=== PATIENT | female | born 1965 | race Caucasian/White ===

== ENCOUNTER 2018-09-16 08:42 | Outpatient (REF) | payer BC, SELFPAY ==
[2018-09-16 12:44] LABS: TSH 4.15 uIU/mL (0.358-3.74)
== END 2018-09-16 09:02 ==
LOC: NCHCN 08:42
PROVIDERS: PCP Nurse Practitioner; Visit Provider Nurse Practitioner
DX: E03.9 Hypothyroidism, unspecified (principal)
CPT/HCPCS: 84443

== ENCOUNTER 2019-03-03 06:59 | Outpatient (CLI) | payer BC, SELFPAY ==
[2019-03-03 08:34] LABS: Cholesterol 191 mg/dL (50-200); Triglyceride 123 mg/dL (30-150)
[2019-03-03 08:43] LABS: ALT 52 U/L (12-78); AST 24 U/L (15-37); Albumin 3.8 g/dL (3.4-5.0); Alkaline Phosphatase 125 U/L (46-116); Bilirubin, Direct 0.13 mg/dL (0.00-0.20); Bilirubin, Total 0.5 mg/dL (0.2-1.0); Glucose 111 mg/dL (70-100); Total Protein 7.6 g/dL (6.4-8.2)
[2019-03-03 08:57] LABS: Vitamin D 25 Total 42.9 ng/ml (30-100)
[2019-03-03 09:50] LABS: Hemoglobin A1C 6.4 % (4.5-6.2)
== END 2019-03-03 07:19 ==
PROVIDERS: PCP Nurse Practitioner; Visit Provider Nurse Practitioner
DX: F32.9 Major depressive disorder, single episode, unspecified (principal); Z79.899 Other long term (current) drug therapy
CPT/HCPCS: 36415; 80076; 82306; 82947; 82465; 83036; 84478

== ENCOUNTER 2019-07-21 00:43 | Outpatient (CLI) | payer BC, SELFPAY ==
--- NOTE | 2019-07-21 11:20 | DI.MAMMO_ITS ---
SYMPTOM/DIAGNOSIS: SCREENING, Z12.39 BILATERAL SCREENING MAMMOGRAM: Mammograms were interpreted according to the usual protocol including computer analysis with CAD system, tomosynthesis and C view imaging. Comparison is made with exams from 2010 through 2017 The breasts are composed of heterogeneously dense fibroglandular tissue, breast density category C. No suspicious masses or suspicious microcalcifications are seen. There has been no significant change. IMPRESSION: Category 1, negative mammogram. Yearly screening mammography is recommended. Breast density category C. SA ASSESSMENT OF FINDINGS: Negative. Category 1. Patient will receive a letter notifying them of these results. Bi-RADS category C. The breasts are heterogeneously dense, which may obscure small masses.
== END 2019-07-21 01:03 ==
PROVIDERS: PCP Nurse Practitioner; Visit Provider Nurse Practitioner
DX: Z12.31 Encounter for screening mammogram for malignant neoplasm of breast (principal)
CPT/HCPCS: 77063; 77067

== ENCOUNTER 2019-08-10 08:47 | Outpatient (REF) | payer BC, SELFPAY | END 2019-08-10 09:07 | LOC: NCHCN 08:47 | PROVIDERS: PCP Nurse Practitioner; Visit Provider Nurse Practitioner | DX: E03.9 Hypothyroidism, unspecified (principal) | CPT/HCPCS: 84443 ==

== ENCOUNTER 2020-10-17 14:00 | Outpatient (REF) | payer BC, SELFPAY ==
[2020-10-17 20:28] LABS: HCT 46.8 % (36.0-46.0); HGB 14.9 g/dL (11.2-15.7); MCH 29.2 pg (27.0-33.0); MCHC 31.8 % (32.0-36.0); MCV 91.6 fL (80-95); MPV 10.4 fL (8.0-11.0); Platelet Count 245 10^3/uL (130-400); RBC 5.11 10^6/uL (3.93-5.22); RDW 13.2 % (11.7-14.6); RDW-SD 44.7 fL; WBC 10.23 10^3/uL (4.4-10.8)
[2020-10-17 20:49] LABS: ALT 68 U/L (14-59); AST 37 U/L (15-37); Alkaline Phosphatase 125 U/L (46-116); Anion Gap 8.5 mmol/L (3-11); BUN 15 mg/dL (7-18); Bilirubin, Total 0.3 mg/dL (0.2-1.0); CO2 27.5 mmol/L (21.0-32.0); CREATININE 1.03 mg/dL (0.55-1.02); Calcium 9.9 mg/dL (8.5-10.1); Chloride 104 mmol/L (98-107); Estimated GFR 55.23 (mL/min/1.73m2); Glucose 128 mg/dL (74-106); Sodium 140 mmol/L (136-145); TSH (W/Ref FT4) 1.46 uIU/mL (0.36-3.74)
[2020-10-17 20:58] LABS: Hemoglobin A1C 6.3 % (<5.7)
== END 2020-10-17 14:20 ==
LOC: NCHCN 14:00
PROVIDERS: PCP Nurse Practitioner; Visit Provider Nurse Practitioner
DX: E03.9 Hypothyroidism, unspecified (principal); R73.03 Prediabetes; L60.9 Nail disorder, unspecified
CPT/HCPCS: 80053; 85027; 83036; 84443

== ENCOUNTER 2021-02-17 21:32 | Outpatient (REF) | payer BC, SELFPAY | END 2021-02-17 21:33 | disposition home or self-care (01) | LOC: NCHCN 21:32 | PROVIDERS: PCP Nurse Practitioner; Visit Provider Nurse Practitioner Family | DX: N39.0 Urinary tract infection, site not specified (principal) | CPT/HCPCS: 87077; 87086; 87186 ==

== ENCOUNTER 2021-05-03 12:40 | Outpatient (REF) | payer BC, SELFPAY ==
[2021-05-03 14:35] LABS: Hemoglobin A1C 6.6 % (<5.7)
[2021-05-03 14:41] LABS: TSH (W/Ref FT4) 0.97 uIU/mL (0.36-3.74)
== END 2021-05-03 12:41 | disposition home or self-care (01) ==
LOC: NCHCN 12:40
PROVIDERS: PCP Nurse Practitioner; Visit Provider Nurse Practitioner
DX: R73.03 Prediabetes (principal); E03.9 Hypothyroidism, unspecified
CPT/HCPCS: 83036; 84443

== ENCOUNTER 2021-05-09 16:56 | Outpatient (CLI) | payer BC, OTHER, SELFPAY ==
--- NOTE | 2021-05-09 12:00 | DI.RAD_ITS ---
Exam(s) XR KNEE LT 3V AP,LAT,RAHUL EXAM: XR KNEE LT 3V AP,LAT,RAHUL CLINICAL HISTORY: ACUTE LT KNEE PAIN M25.562. TECHNIQUE: 2D digital imaging was performed. COMPARISON: No exams were available for comparison FINDINGS: BONES: No acute fracture is present. No bony destructive lesion is seen. JOINTS: The knee is normally aligned. There is a tiny joint effusion. There is mild spurring of the medial femoral tibial joint in the posterior patella. SOFT TISSUE: Normal. IMPRESSION: Minimal degenerative changes of the left knee and tiny joint effusion. DATA REPOSITORY: RADIATION DOSE DELIVERED:
== END 2021-05-09 17:16 ==
PROVIDERS: PCP Nurse Practitioner; Visit Provider Nurse Practitioner Family
DX: M25.462 Effusion, left knee (principal)
CPT/HCPCS: 73562

== ENCOUNTER 2021-07-20 02:11 | Outpatient (CLI) | payer BC, OTHER, SELFPAY ==
--- NOTE | 2021-07-20 | DI.MRI_ITS ---
Exam(s) MR LOWER JOINT LT WO EXAM: MR LOWER JOINT LT WO CLINICAL HISTORY: LT KNEE PAIN, M25.562, ONGOING PAIN, XRAY DJD, EFFUSION, SEVERE PAIN WITH TECHNIQUE: Multiplanar multisequence MRI of the knee was performed. COMPARISON: X-rays 05/09/2021 reviewed FINDINGS: EFFUSION: There is a large joint effusion. There is no Horvath cyst in the popliteal fossa. MARROW:There is prominent bone contusion signal in the medial tibial plateau and mild intraosseous si gnal in the overlying subarticular medial femoral condyle. There is a degenerative subarticular cyst measuring 6 x 4 millimeters in the mid tibial plateau sub spinous region. PATELLOFEMORAL COMPARTMENT: The quadriceps tendon is intact. The patellar ligament is intact. There is no significant thinning of the retropatellar cartilage. No evidence of fissure nor signific ant chondral defect. No osteochondral defect at this level.There is no intraosseous signal to sugges t recent patellar dislocation. Outward bowing of the medial patellar retinaculum related to large maynor int effusion. CRUCIATE LIGAMENTS: Mild increased signal but no high-grade tear.The posterior cruciate ligament is i ntact. MEDIAL COMPARTMENT/MEDIAL MENISCUS: There is complex tearing of the posterior horn of the medial meni scus. There is a tear is 7 millimeters from the root with mild separation of fragments. There is al so 2-3 millimeters outward extrusion of the posterior horn although this is not descended into the gu tter. Mild meniscocapsular separation. No obvious tear of the anterior horn.. There is significant thinning of the Hyaline cartilage over the medial femoral condyle. No osteochon dral defects seen. Small marginal osteophyte off the inner aspect of the condyle. MEDIAL COLLATERAL LIGAMENT: Sprain signal. No full-thickness tear. POSTEROMEDIAL CORNER: Mild increased signal noted in the semimembranosus tendon but no high-grade tea r. LATERAL COMPARTMENT/LATERAL MENISCUS: There is no evidence of lateral meniscal tear.There are no axel dral defects, osteochondral defects, subarticular marrow edema, nor osteophytes evident. ILIOTIBIAL BAND: Intact LATERAL COLLATERAL LIGAMENT COMPLEX: The fibular collateral ligament is intact. The biceps femoris t endon is intact.Popliteus muscle and tendon are intact. IMPRESSION: 1. The main finding here is a complex tear of the posterior horn of the medial meniscus with some out henson extrusion but no descent into the para tibial gutter. Mild meniscocapsular separation. Medial collateral ligament sprain signal but no high-grade MCL tear. There is significant bone contusion in the medial tibial plateau subjacent to the torn meniscus. Mild subarticular bone edema evident in t he overlying medial femoral condyle. Also mild-moderate cartilage loss over the medial femoral condy le but no osteochondral defect. 2. Increased signal in the anterior cruciate ligament but no full-thickness tear. PCL is intact. Il iotibial band is intact. All components of the lateral collateral ligament complex are intact. 3. Mild increased signal in the semimembranosus tendon behind the medial femoral condyle but no high- grade tear. 4. Large joint effusion. There is no Horvath cyst in the popliteal fossa. DATA REPOSITORY:
== END 2021-07-20 02:31 ==
PROVIDERS: PCP Nurse Practitioner; Visit Provider Nurse Practitioner
DX: M25.562 Pain in left knee (principal); M25.462 Effusion, left knee; M17.12 Unilateral primary osteoarthritis, left knee; S83.232A Complex tear of medial meniscus, current injury, left knee, initial encounter; S83.412A Sprain of medial collateral ligament of left knee, initial encounter; S80.02XA Contusion of left knee, initial encounter; X58.XXXA Exposure to other specified factors, initial encounter
CPT/HCPCS: 73721

== ENCOUNTER 2021-10-16 09:11 | Outpatient (CLI) | payer BC, OTHER, SELFPAY ==
[2021-10-16 10:52] LABS: Source Nasal/Nares
[2021-10-16 14:32] LABS: COVID-19 PCR Negative (Negative)
== END 2021-10-16 09:12 | disposition home or self-care (01) ==
LOC: LBO 09:12
PROVIDERS: PCP Nurse Practitioner; Visit Provider Student in an Organized Health Care Education/Training Program
DX: Z20.822 Contact with and (suspected) exposure to COVID-19 (principal)
CPT/HCPCS: 87635

== ENCOUNTER 2021-10-17 10:47 | Day surgery (SDC) | payer BC, OTHER, SELFPAY ==
[2021-10-17] VITALS (9 sets, daily range): BP systolic 97–147; BP diastolic 61–93; PULSE 68–85; RESP 11–18; TEMP 36.1–36.8; O2SAT 94–97; BMI 38.0
--- NOTE | 2021-10-17 10:19 | W.ANESPRE ---
General Info Date of Service Date Performed: 10/17/21 Height: 5 ft 5 in Weight: 103.769 kg Body Mass Index (BMI): 38.0 Surgical Procedure: Operation Date: 10/17/21 14:10 Proposed Procedures Side Surgeon p Knee Arthroscopy WITH MEDIAL MENISECTOMY Left Jarrod Ware MD Meds Allergies and Home Medications Allergies Allergy/AdvReac Type Severity Reaction Status Date / Time No Known Allergies Allergy Unverified 10/17/21 10:55 Home Medication Medication Instructions Recorded Centrum Silver 1 tab PO DAILY 11/16/13 aripiprazole [Abilify] 10 mg PO DAILY 11/16/13 calcium carb and citrate-vitD3 1 tab PO DAILY 11/16/13 duloxetine [Cymbalta] 60 mg PO DAILY 11/16/13 levothyroxine 100 mcg PO DAILY 11/16/13 propranolol 80 mg PO DAILY PRN 11/16/13 ondansetron 4 mg PO Q6H PRN #10 01/18/18 metformin 500 mg tablet 500 mg PO DAILY 08/14/21 Current Visit Medications: Current Medications Generic Name Dose Route Start Last Admin Trade Name Freq PRN Reason Stop Dose Admin Acetaminophen 1,000 mg 10/17/21 06:00 Acetaminophen 500 Mg Tab PO PREOP RAY Celecoxib 400 mg 10/17/21 06:00 Celecoxib 200 Mg Cap PO PREOP RAY Ringer's Solution 1,000 mls @ 80 mls/hr 10/17/21 06:00 IV 11/16/21 23:59 INFUSION RAY Cefazolin Sodium/Dextrose 2 gm in 50 mls @ 100 mls/hr 10/17/21 06:00 Ancef Duplex IVPB 11/16/21 23:59 PREOP RAY IV Miscellaneous Supplies 1 each 10/17/21 06:00 Iv Access IV 11/16/21 23:59 DIRECTED RAY Sodium Chloride 0 ml 10/17/21 06:00 Normal Saline Flush 10 Ml Syr IV 11/16/21 23:59 PRN PRN Sodium Chloride 0 ml 10/17/21 06:00 Normal Saline 10 Ml Vial IJ 11/16/21 23:59 DIRECTED PRN Sterile Water 0 ml 10/17/21 06:00 Water,Injection,Sterile 10 Ml Vial IJ 11/16/21 23:59 DIRECTED PRN PFSH Active Problems Active Problems: Problem Status Onset Code Chondromalacia, left knee M94.262 Complex tear of medial meniscus of left knee S83.232A Medical History Active Problem List Chondromalacia, left knee (Acute) Complex tear of medial meniscus of left knee (Acute) Medical History Chronic mycotic otitis externa Female infertility Headache Hypothyroid MDD (major depressive disorder) Non-organic sleep disorder Obesity On paleo diet and has lost 2 dress sizes Periodontitis Vitamin D deficiency Tobacco Smoking/Tobacco Use Status: Never Alcohol Alcohol Intake: current Alcohol intake frequency: 0-2 drinks per day Substance Use Substance use: Never Substance use type: does not use Vital Signs and Lab Results Lab Results Blood Type / Crossmatch: No Data to Display Complete Blood Count: No Data to Display Complete Metabolic Panel: No Data to Display Liver Function Panel: No Data to Display Coagulation Panel: No Data to Display Cardiac Panel: No Data to Display Arterial Blood Gas: No Data to Display Venous Blood Gas: No Data to Display Pancreas Panel: No Data to Display Thyroid Panel: No Data to Display Infectious Disease: Coronavirus (COVID-19)(PCR) Negative (Negative) 10/16/21 09:03 10/16/21 Coronavirus 2019 Source Nasal/Nares 10/16/21 09:03 10/16/21 Blood Cultures: No Data to Display Toxicology Panel: No Data to Display Anesthesia Assessment and Plan Anesthesia History Personal History: No History of Anesthesia Complications Family History: No Family History of Anesthesia Complications Exercise Tolerance Exercise Tolerance: Metabolic Equivalents>4 Pertinent Negatives Pertinent Negatives: No Symptoms of GERD, No Major Cardiovascular Symptoms or Complaints, No Major Pulmonary Symptoms or Complaints and No History of CVA/TIA Cardiac & Pulmonary Exam Cardiac Exam: Normal S1/S2 Heart Sounds Pulmonary Exam: Clear Bilateral Breath Sounds Implantable Cardiac Device Does patient have a Pacemaker or an ICD?: No Airway Exam Known Difficult Airway: No Mallampati Class: 3 Mouth Opening: Normal (> 3cm) Thyromental Distance: Greater than 3 cm Neck Range of Motion: Full ROM Neck Circumference: Normal Teeth Condition: Normal Dentition ASA Classification ASA Score: ASA 2 Emergency Case?: No NPO Status NPO Status: NPO Clears >2 hours, Solids >8 hours Anesthesia Plan Resuscitation Status: Full Code Anesthesia Technique: General Anesthesia Airway Planned: LMA Monitors Used: Standard Monitors
[2021-10-17] MEDS: Celecoxib 200 MG CAP 400 MG PO (11:25)
[2021-10-17] MEDS: Acetaminophen 500 MG TAB 1000 MG PO (11:25)
[2021-10-17] MEDS: Lactated Ringers 1,000 ML 80 ML IV (11:59)
[2021-10-17] MEDS: ceFAZolin 2 GM/50 ML BAG IVPB (12:14)
[2021-10-17] MEDS: Bupivacaine 0.5% Pres-Free 30 ML VIAL (12:49)
--- NOTE | 2021-10-17 12:59 | W.PM.DSUDISC ---
Discharge Plan Disposition Patient Disposition: HOME Condition: Good Discharge Details Reason For Visit: L knee arthroscopy Attending Provider: Jarrod Ware Primary Care Provider: Estefania Caballero Home Meds and New Rx's Prescriptions: New hydrocodone-acetaminophen 5-325 mg tablet 1 tab PO Q6H PRN (Reason: pain) Qty: 6 RF: 0 acetaminophen 500 mg tablet 1,000 mg PO TID Qty: 90 RF: 0 ibuprofen 600 mg tablet 600 mg PO TID PRN (Reason: pain) Qty: 90 RF: 0 Continued metformin 500 mg tablet 500 mg PO DAILY RF: 0 propranolol 80 MG tablet 80 mg PO DAILY PRNRF: 0 levothyroxine 100 MCG tablet 100 mcg PO DAILY RF: 0 aripiprazole [Abilify] 10 MG tablet 10 mg PO DAILY RF: 0 duloxetine [Cymbalta] 60 MG capsule,delayed release(DR/EC) 60 mg PO DAILY RF: 0 Centrum Silver 1 EACH tablet 1 tab PO DAILY RF: 0 calcium carb and citrate-vitD3 1 EACH tablet extended release 1 tab PO DAILY RF: 0 ondansetron 4 MG tablet,disintegrating 4 mg PO Q6H PRN (Reason: Vomiting) Qty: 10 RF: 0 Discharge Instructions Stand Alone Forms: [facility] Knee Arthroscopy Referrals: Jarrod Ware MD [ [facility] STAFF PHYSICIAN] - Equipment/Supplies: Partial Weight Bearing Crutches Activity:: Activity as Tolerated Remove Dressings/Wound Care:: 72 hours Shower/Bathe:: 72 hours Diet:: As Tolerated Discharge Orders Discharge Orders: Discharge Order (Routine); Ordered 10/17/21 Ordered By: Yuri Barnett DS: Diagnosis Discharge Diagnosis (1) Complex tear of medial meniscus of left knee: Status: Acute
[2021-10-17] MEDS: fentaNYL 100 MCG/2 ML VIAL IVP (13:43)
[2021-10-17] MEDS: Ketorolac 15 MG/ML VIAL IVP (13:55)
--- NOTE | 2021-10-17 15:26 | ANES.POST_ITS ---
Postoperative Evaluation Date, Time and Location Date Performed: 10/17/21 Time Performed: 15:26 Patient Location: PACU Vital Signs Most Recent Imported Vital Signs: Most Recent Vital Signs Temp Pulse Resp BP Pulse Ox 36.2 C L 81 16 134/79 95 10/17/21 14:15 10/17/21 14:15 10/17/21 14:15 10/17/21 14:15 10/17/21 14:15 Pain Score Most Recent Pain Score: Most Recent Pain Score Pain Level 0 10/17/21 14:15 Assessment Mental Status: Awake (Alert & Oriented to Patient Baseline) Airway and Respiratory Function: Patent airway with normal (patient baseline) respiratory exam Cardiovascular Function: Hemodynamically Stable Hydration Status: Adequately Hydrated Nausea & Vomiting: No Nausea or Vomiting Pain: Pain is tolerable per patient Peripheral Nerve Block: Patient did not receive a nerve block Postoperative Comments:: Seen earlier in PACU patient was having discomfort, however, was being treated by [employer].
--- NOTE | 2021-10-17 21:46 | W.PM.OP ---
Date of service: 10/17/21 Time of Service: 13:46 Operative Note Operative Note DATE OF PROCEDURE: 10/17/21 PRE-OP DIAGNOSIS: Left Medial Meniscus Tear POST-OP DIAGNOSIS: same Left Knee Medial Chondromalacia and Left Lateral Meniscus Tear PROCEDURE: Left Knee Arthroscopic Partial Lateral and Medial Menisectomies, Medial Femoral Chondroplasty SURGEON: Jarrod Ware ANESTHESIA TYPE: General LMA/ETT Refer to Anesthesia Record ESTIMATED BLOOD LOSS: 0 PATHOLOGY: none sent TOURNIQUET TIME: 0 COMPLICATIONS: None Patient was transported to: PACU Patient's condition: stable Indications: I have seen Estefania in clinic for symptoms of a meniscus tear. This was confirmed based on MRI and exam findings. Nonoperative measures were exhausted but disability and pain persisted. I discussed knee arthroscopy with meniscal intervention with the patient. I reviewed the risks of the procedure to include, but not limited to, bleeding, infection, pain, stiffness, damage to nerves or vessels, recurrence, blood clot. Despite these risks, the patient elected to proceed. Findings: A diagnostic arthroscopy was performed with the following findings: Suprapatellar Pouch: Moderate inflammatory changes, No loose bodies Medial Compartment: Complex medial meniscal tear within the body and the horn, Intact meniscal root but with notable inflammatory changes and questionable previosu injury, Grade III chondromalacia of the femur with a chondral flap, very focal Grade III chondromalacia of the central tibia, No loose bodies Notch: ACL and PCL were intact Lateral Compartment: Complex tearing at the meniscal root, Intact meniscal root peripherally, No significant chondromalacia or signs of arthritis, No loose bodies Patellofemoral Compartment: Grade I chondromalacia, No apparent patellar maltracking Procedure Description: Estefania was greeted in the preoperative holding area where the correct side was identified and marked. The consent was reviewed with the patient and signed. The history and physical was updated. All questions were answered. She was taken back to the operating room. The patient was placed into the supine position on the operating room table. All bony prominences were well padded. Prophylactic antibiotics in the form of Cefazolin were administered. The left leg was then prepped with Chloraprep and draped in a standard fashion with stockinette and extremity drape. A timeout to confirm correct identity, side and site, procedure, allergies, anesthesia, and medical concerns was performed. The leg was placed into a pneumatic leg goel, [id number]. A standard lateral portal was made at the lateral border of the patella tendon in line with the inferior pole of the patella, soft spot. The skin and deep tissue was incised sharply and the blunt trochar was inserted atraumatically. A diagnostic arthroscopy was performed and the findings are listed above. The suprapatellar pouch had moderate inflammatory changes. The patellofemoral articulation showed mild chondromalacia as well as good tracking. The lateral gutter had no loose bodies and the medial gutter had no loose bodies. The knee was brought into some valgus stress in extension to open the medial compartment. A medial portal was made, localized by a spinal needle. The portal was created with an #11 blade through skin and capsule under direct visualization avoiding any meniscal injury. A probe was then inserted into the medial compartment. The medial compartment was fully inspected. The chondral surface of the tibia showed a small focal area of Grade III chondromalacia in the central tibia and the surface of the femur showed diffuse Grade II/III chondromalacia with a loose chondral flap. No exposed bone. The medial meniscus had a complex tear with signficant fraying within the body of the medial menicus. There was also a vertical type tear within the posterior horn. Furthermore, the meniscus had significant inflammatory change around it. In inspecting the root, it appeared like it had been previously torn or coud be torn just medial to the root. However, I ws unable to expose a tear but there was significant inflammation in this area and friability to the meniscus. After evaluation, the meniscus was debrided down to a stable base using a series of biters and arthroscopic kacie. It was probed afterwards to confirm that the tear had been removed and the meniscus was stable. Cartilage surfaces were debrided of any flaps, leaving any intact fibers. The notch was then inspected which showed an intact ACL and an intact PCL. The leg was then brought into a figure of 4 position. The lateral compartment was fully inspected with the arthroscope and a probe. The chondral surface of the lateral femur showed no significant chondromalacia. The chondral surface of the lateral tibia showed no significant chondromalacia. The lateral meniscus had a complex tear at the level of the root but the root ws peripherally stable. After evaluation, the meniscus was debrided down to a stable base using a series of biters and arthroscopic kacie. It was probed afterwards to confirm that the tear had been removed and the meniscus was stable. The arthroscope was brought back into the suprapatellar pouch and the leg was in full extension. The knee was thoroughly irrigated with the arthroscopic fluid on high flow and pressure. Inflow was stopped and excess fluid was removed. The wounds were closed with 4-0 Nylon. They were dressed with Xeroform, 4x4 gauze, ABD pad, Kerlix and an BOBBI wrap. A cryo-cuff was applied. The patient tolerated the procedure well and was returned to the Same Day Surgery area in a stable condition suffering no known complication.
== END 2021-10-17 15:39 | disposition home or self-care (01) ==
PROVIDERS: PCP Nurse Practitioner; Visit Provider Student in an Organized Health Care Education/Training Program
PROC: (CPT 29870; principal; 2021-10-17 14:00)
DX: S83.232A Complex tear of medial meniscus, current injury, left knee, initial encounter (principal); E11.9 Type 2 diabetes mellitus without complications; Z79.84 Long term (current) use of oral hypoglycemic drugs; M94.262 Chondromalacia, left knee; X58.XXXA Exposure to other specified factors, initial encounter
CPT/HCPCS: 29881; J0690; J1100; J1885; J2405; J2704; J3010

== ENCOUNTER 2021-12-07 03:08 | Outpatient (CLI) | payer BC, OTHER, SELFPAY ==
--- NOTE | 2021-12-07 12:30 | DI.MAMMO_ITS ---
Exam(s) MAMMO SCREENING EXAM: MAMMO SCREENING CLINICAL HISTORY: SCREENING, Z12.39 TECHNIQUE: Mammograms were interpreted according to the usual protocol including computer analysis w [employer] CAD system, tomosynthesis and C-view imaging. COMPARISON: 2011 through 2018 FINDINGS: The breasts are composed of scattered fibroglandular densities, Breast Density category B. No suspicious masses or suspicious microcalcifications are seen. No skin thickening or abnormal axillary lymph nodes are seen. There has been no significant change from prior exams. IMPRESSION: BI-RADS Category 1, Negative mammogram Yearly screening mammography is recommended. Breast Density - Category B, scattered fibroglandular densities. A negative radiographic report should not delay biopsy if a dominant or clinically suspicious mass is present. Up to ten percent of cancers are not identified on mammography. A negative report may reinforce clinical impression. Adenosis and dense breasts may obscure an underlying neoplasm. False positive reports average 6 to 10%. Patient will receive a letter notifying them of these results.
== END 2021-12-07 03:28 ==
PROVIDERS: PCP Nurse Practitioner; Visit Provider Nurse Practitioner
DX: Z12.31 Encounter for screening mammogram for malignant neoplasm of breast (principal); R92.2 Inconclusive mammogram
CPT/HCPCS: 77063; 77067

== ENCOUNTER 2021-12-07 18:22 | Outpatient (REF) | payer BC, OTHER, SELFPAY ==
[2021-12-07 21:49] LABS: Abs Immature Grans 0.01 10^3/uL (0.0-0.06); Absolute Basophil Count 0.07 10^3/uL (0.0-0.2); Absolute Eosinophil Count 0.26 10^3/uL (0.0-0.7); Absolute Lymphocyte Count 1.99 10^3/uL (1.2-3.4); Absolute Neutrophil Count 6.15 10^3/uL (1.2-6.7); Basophils % 0.8; Eosinophils % 2.9; HCT 44.9 % (36.0-46.0); Immature Grans % 0.1; Lymphocytes % 21.9; MCH 28.1 pg (27.0-33.0); MCHC 31.2 % (32.0-36.0); MCV 90.2 fL (80-95); MPV 10.1 fL (8.0-11.0); Monocytes % 6.6; Neutrophils % 67.7; Nucleated RBC 0 %; Platelet Count 268 10^3/uL (130-400); RBC 4.98 10^6/uL (3.93-5.22); RDW-SD 45.8 fL; WBC 9.08 10^3/uL (4.4-10.8)
[2021-12-07 22:33] LABS: ALT 67 U/L (14-59); AST 29 U/L (15-37); Alkaline Phosphatase 111 U/L (46-116); Anion Gap 9.7 mmol/L (3-11); BUN 21 mg/dL (7-18); Bilirubin, Total 0.3 mg/dL (0.2-1.0); CO2 26.3 mmol/L (21.0-32.0); CREATININE 1.1 mg/dL (0.55-1.02); Calcium 9.7 mg/dL (8.5-10.1); Chloride 103 mmol/L (98-107); Estimated GFR 51.02 (mL/min/1.73m2); Glucose 110 mg/dL (74-106); Potassium 4.4 mmol/L (3.5-5.1); Sodium 139 mmol/L (136-145); Total Protein 8.4 g/dL (6.4-8.2)
== END 2021-12-07 18:23 | disposition home or self-care (01) ==
LOC: LBN 18:22
PROVIDERS: PCP Nurse Practitioner; Visit Provider Physician Assistant Medical
DX: M79.662 Pain in left lower leg (principal)
CPT/HCPCS: 80053; 85025

== ENCOUNTER 2022-07-25 08:03 | Outpatient (REF) | payer BC, OTHER, SELFPAY ==
[2022-07-25 17:09] LABS: ALT 74 U/L (14-59); AST 45 U/L (15-37); Albumin 3.9 g/dL (3.4-5.0); Alkaline Phosphatase 112 U/L (46-116); Anion Gap 10.9 mmol/L (3-11); BUN 21 mg/dL (7-18); Bilirubin, Total 0.4 mg/dL (0.2-1.0); CO2 28.1 mmol/L (21.0-32.0); CREATININE 1.2 mg/dL (0.55-1.02); Calculated LDL 118 mg/dL (<100); Chloride 104 mmol/L (98-107); Cholesterol 201 mg/dL (<200); Estimated GFR 52.14 (mL/min/1.73m2); Glucose 147 mg/dL (74-106); HDL Cholesterol 57 mg/dL (40-60); Potassium 4.7 mmol/L (3.5-5.1); Sodium 143 mmol/L (136-145); TSH 1.33 uIU/mL (0.36-3.74); Total Protein 8.3 g/dL (6.4-8.2); Triglyceride 133 mg/dL (<150)
[2022-07-25 18:12] LABS: HCT 47.8 % (36.0-46.0); HGB 14.8 g/dL (11.2-15.7); MCH 27.9 pg (27.0-33.0); MCV 90 fL (80-95); MPV 10.2 fL (8.0-11.0); Platelet Count 255 10^3/uL (130-400); RDW 14.4 % (11.7-14.6); WBC 8.53 10^3/uL (4.4-10.8)
== END 2022-07-25 08:04 | disposition home or self-care (01) ==
LOC: NCHCN 08:03
PROVIDERS: PCP Nurse Practitioner Family; Visit Provider Nurse Practitioner Family
DX: Z00.00 Encounter for general adult medical examination without abnormal findings (principal); E11.9 Type 2 diabetes mellitus without complications; E03.9 Hypothyroidism, unspecified
CPT/HCPCS: 80053; 80061; 85027; 84443

== ENCOUNTER 2022-07-31 15:26 | Outpatient (REF) | payer BC, OTHER, SELFPAY ==
[2022-07-31 22:24] LABS: Albumin ug/mg Crea 92 (<30); Albumin, Ur 6.7 mg/dL (See Note); Creatinine, Ur 72.8 mg/dL (See Note)
== END 2022-07-31 15:27 | disposition home or self-care (01) ==
LOC: NCHCN 15:26
PROVIDERS: PCP Nurse Practitioner Family; Visit Provider Nurse Practitioner Family
DX: E11.9 Type 2 diabetes mellitus without complications (principal)
CPT/HCPCS: 82043; 82570

== ENCOUNTER 2022-09-04 14:32 | Outpatient (REF) | payer BC, OTHER, SELFPAY ==
--- NOTE | 2022-09-04 10:40 | PAPFT_PTH ---
PATIENT: Estefania Wang LOC: [facility]#:[id number] AGE/SX: 57/F ROOM: RE09/04/[address]: KAYKAY W[place] : 1965 BED: DIS: 09/04/2022 SPEC #: [id number] RECD: 09/04/22 18:11 STATUS: HERSON REQ #: [id number] TRUDY: 09/04/22 10:[address]: Kaykay [place] DEPT: [facility] Cytology RECD BY: Zayda Londono ENTERED: 09/04/22 18:12 SP TYPE: PAPFT OT DR: RAVEN ALVARES NP Tissues: 1 - CX/ENDOCX FOR PAP SMEARS Procedures: PAP THIN PREP/UVM Screening HPV DNA PROBE Comments: [id number]
== END 2022-09-04 14:33 | disposition home or self-care (01) ==
LOC: NCHCN 14:32
PROVIDERS: PCP Nurse Practitioner Family; Visit Provider Nurse Practitioner Family
DX: Z12.4 Encounter for screening for malignant neoplasm of cervix (principal); Z11.51 Encounter for screening for human papillomavirus (HPV)
CPT/HCPCS: 88142; 87624

== ENCOUNTER → 2022-10-30 13:22 | Outpatient (CLI) | payer BC, OTHER, SELFPAY ==
--- NOTE | 2022-10-30 | DI.MRI_ITS ---
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 TECHNIQUE: Multiplanar multisequence MRA of the Neck was performed. COMPARISON: No exams were available for comparison FINDINGS: Common Carotid: Right: No dissection, occlusion or significant stenosis. Left: No dissection, occlusion or significant stenosis. External Carotid: Right: No evidence of occlusion or significant stenosis. Left: No evidence of occlusion or significant stenosis. Internal Carotid: Right: No dissection, occlusion or significant stenosis. Left: No dissection, occlusion or significant stenosis. Vertebral Artery: Right: No dissection, occlusion or significant stenosis. Left: No dissection, occlusion or significant stenosis. The visualized paraspinal soft tissues are unremarkable. IMPRESSION: No evidence of dissection, occlusion or significant stenosis. DATA REPOSITORY:
--- NOTE | 2022-10-30 | DI.MRI_ITS ---
Exam(s) MR BRAIN WO EXAM: MR BRAIN WO CLINICAL HISTORY: OCULAR ISCHEMIC SYNDROME, H34.9, DM, ACUTE VISION LOSS, HEADACHE, NAUSEA TECHNIQUE: Multiplanar multisequence MRI of the brain was performed. COMPARISON: No exams were available for comparison FINDINGS: The examination is limited due to patient motion artifact. VENTRICLES AND EXTRA AXIAL SPACES: Normal in size and morphology for the patient's age. MIDLINE SHIFT: None. CEREBRAL PARENCHYMA: No focus of restricted diffusion to suggest acute infarct. No space-occupying le asha identified. HEMORRHAGE: None. BRAINSTEM/CEREBELLUM: Normal. CALVARIUM: Normal. VISUALIZED PARANASAL SINUSES/MASTOIDS:Clear. [place]: Normal flow void. PITUITARY GLAND: Note is made of a partially empty sella. OTHER FINDINGS: None. IMPRESSION: No evidence of an acute infarct or intracranial mass. DATA REPOSITORY:
== END ==
PROVIDERS: PCP Nurse Practitioner Family; Visit Provider Family Medicine
DX: R51.9 Headache, unspecified (principal); R11.0 Nausea; H34.9 Unspecified retinal vascular occlusion
CPT/HCPCS: 70547; 70551

== ENCOUNTER 2022-11-13 16:44 | Outpatient (REF) | payer BC, OTHER, SELFPAY ==
[2022-11-13 17:03] LABS: Bilirubin Negative (Negative); Blood Large (Negative); Clarity Cloudy (Clear); Glucose Negative (Negative); Ketones Negative (Negative); Leukocyte Esterase Moderate (Negative); Nitrite Positive (Negative); Urobilinogen 0.2 EU/dL (Up TO 0.2); pH 6.5 (5-8)
[2022-11-13 17:16] LABS: Bacteria Many HPF (Negative); C & S Indicated? Yes; Casts Negative LPF (Negative); Crystals Negative HPF (Negative); Epithelial Cells Few HPF (Negative); Mucus Negative (Negative); WBC 20-50 HPF (0-5)
== END 2022-11-13 16:45 | disposition home or self-care (01) ==
LOC: NCHCN 16:44
PROVIDERS: PCP Nurse Practitioner Family; Visit Provider Family Medicine
DX: R31.0 Gross hematuria (principal)
CPT/HCPCS: 87077; 81003; 81015; 87086; 87186

== ENCOUNTER 2022-11-30 08:28 | Outpatient (CLI) | payer BC, OTHER, SELFPAY ==
--- NOTE | 2022-11-30 08:30 | DI.RAD_ITS ---
Exam(s) XR KNEE LT 3V AP,LAT,RAHUL EXAM: XR KNEE LT 3V AP,LAT,RAHUL CLINICAL HISTORY: new pain. TECHNIQUE: 2D digital imaging was performed. Three views. COMPARISON: CR XR KNEE LT 3V AP,LAT,RAHUL from 05/09/2021 MR MR LOWER JOINT LT WO from 07/20/2021 FINDINGS: BONES: No acute fracture is present. No bony destructive lesion is seen. JOINTS: There is now moderate to severe narrowing of the medial femoral tibial joint space with progr ession from prior exam. There is increased spurring and sclerosis as well as varus angulation.. Sma ll spurs are seen at the lateral femoral condyle. Spurring is also noted at the patella which is whi ch is more prominent when compared to prior. No joint effusion is seen. SOFT TISSUE: Normal. IMPRESSION: Severe degenerative changes medial femoral tibial joint. DATA REPOSITORY: RADIATION DOSE DELIVERED:
== END 2022-11-30 08:29 | disposition home or self-care (01) ==
LOC: DIORS 08:29
PROVIDERS: PCP Nurse Practitioner Family; Referring Provider Nurse Practitioner Family; Visit Provider Student in an Organized Health Care Education/Training Program
DX: M17.12 Unilateral primary osteoarthritis, left knee (principal)
CPT/HCPCS: 73562

== ENCOUNTER 2022-12-11 14:41 | Outpatient (REF) | payer BC, OTHER, SELFPAY ==
[2022-12-11 17:09] LABS: Bacteria Moderate HPF (Negative); C & S Indicated? C&S Done As Ordered; Crystals Negative HPF (Negative); Epithelial Cells Rare HPF (Negative); Mucus Trace (Negative); Other Cells Rare Renal (Negative); RBC >50 HPF (0-2); WBC >50 HPF (0-5)
== END 2022-12-11 14:42 | disposition home or self-care (01) ==
LOC: LBN 14:41
PROVIDERS: PCP Nurse Practitioner Family; Visit Provider Nurse Practitioner Family
DX: R35.0 Frequency of micturition (principal)
CPT/HCPCS: 87077; 81015; 87086; 87186

== ENCOUNTER 2023-01-04 18:51 | Outpatient (REF) | payer BC, OTHER, SELFPAY ==
[2023-01-04 20:53] LABS: Bacteria Moderate HPF (Negative); C & S Indicated? C&S Done As Ordered; Casts Negative LPF (Negative); Crystals Negative HPF (Negative); Epithelial Cells Few HPF (Negative); Mucus Negative (Negative); WBC >50 HPF (0-5)
== END 2023-01-04 18:52 | disposition home or self-care (01) ==
LOC: LBN 18:51
PROVIDERS: PCP Nurse Practitioner Family; Visit Provider Physician Assistant Medical
DX: R31.0 Gross hematuria (principal)
CPT/HCPCS: 87077; 81015; 87086; 87186

== ENCOUNTER 2023-02-04 17:19 | Outpatient (REF) | payer BC, OTHER, SELFPAY ==
[2023-02-04 18:17] LABS: Abs Immature Grans 0.02 10^3/uL (0.0-0.06); Absolute Basophil Count 0.04 10^3/uL (0.0-0.2); Absolute Eosinophil Count 0.37 10^3/uL (0.0-0.7); Absolute Lymphocyte Count 1.61 10^3/uL (1.2-3.4); Absolute Monocyte Count 0.69 10^3/uL (0.1-0.8); Absolute Neutrophil Count 6.04 10^3/uL (1.2-6.7); Basophils % 0.5; Eosinophils % 4.2; HCT 42.9 % (36.0-46.0); HGB 13.2 g/dL (11.2-15.7); Immature Grans % 0.2; Lymphocytes % 18.4; MCH 27.3 pg (27.0-33.0); MCHC 30.8 % (32.0-36.0); MCV 89 fL (80-95); Monocytes % 7.9; Neutrophils % 68.8; Platelet Count 364 10^3/uL (130-400); RBC 4.84 10^6/uL (3.93-5.22); RDW 14.2 % (11.7-14.6); RDW-SD 45.8 fL; WBC 8.77 10^3/uL (4.4-10.8)
[2023-02-04 19:03] LABS: Vitamin D 25 Total 32.4 ng/mL (30-100)
[2023-02-04 20:21] LABS: ALT 29 U/L (14-59); AST 17 U/L (15-37); Albumin 3.5 g/dL (3.4-5.0); Alkaline Phosphatase 137 U/L (46-116); Anion Gap 9.1 mmol/L (3-11); BUN 12 mg/dL (7-18); Bilirubin, Total 0.3 mg/dL (0.2-1.0); CO2 24.9 mmol/L (21.0-32.0); CREATININE 0.9 mg/dL (0.55-1.02); Calcium 9.5 mg/dL (8.5-10.1); Calculated LDL 68 mg/dL (<100); Chloride 105 mmol/L (98-107); Cholesterol 133 mg/dL (<200); Estimated GFR 73.64 (mL/min/1.73m2); Glucose 84 mg/dL (74-106); HDL Cholesterol 49 mg/dL (40-60); Potassium 4.4 mmol/L (3.5-5.1); Sodium 139 mmol/L (136-145); TSH (W/Ref FT4) 0.92 uIU/mL (0.36-3.74); Total Protein 7.6 g/dL (6.4-8.2); Triglyceride 83 mg/dL (<150)
[2023-02-06 10:07] LABS: Hepatitis C Ab w Rflx HCV PCR Negative (Negative)
== END 2023-02-04 17:20 | disposition home or self-care (01) ==
LOC: NCHCN 17:19
PROVIDERS: PCP Nurse Practitioner Family; Visit Provider Nurse Practitioner Family
DX: E11.9 Type 2 diabetes mellitus without complications (principal); E03.9 Hypothyroidism, unspecified; F60.3 Borderline personality disorder; E66.8 Other obesity; Z79.899 Other long term (current) drug therapy; Z11.59 Encounter for screening for other viral diseases
CPT/HCPCS: 80053; 80061; 82306; 86803; 84443; 85025

== ENCOUNTER 2023-05-06 17:31 | Outpatient (REF) | payer BC, OTHER, SELFPAY ==
[2023-05-06 18:16] LABS: Bilirubin Negative (Negative); Blood Small (Negative); Clarity Clear (Clear); Glucose Negative (Negative); Ketones Negative (Negative); Leukocyte Esterase Large (Negative); Nitrite Positive (Negative); Specific Gravity 1.015 (1.005-1.025); Urobilinogen 0.2 mg/dL (Up to 0.2)
[2023-05-06 18:30] LABS: Bacteria Moderate HPF (Negative); C & S Indicated? C&S Done As Ordered; Casts Negative LPF (Negative); Crystals Negative HPF (Negative); Epithelial Cells Rare HPF (Negative); Mucus Negative (Negative)
== END 2023-05-06 17:32 | disposition home or self-care (01) ==
LOC: NCHCN 17:31
PROVIDERS: PCP Nurse Practitioner Family; Visit Provider Nurse Practitioner Family
DX: R32 Unspecified urinary incontinence (principal); R82.998 Other abnormal findings in urine
CPT/HCPCS: 87077; 81003; 81015; 87086; 87186

== ENCOUNTER 2023-05-23 15:19 | Outpatient (REF) | payer BC, OTHER, SELFPAY | END 2023-05-23 15:20 | disposition home or self-care (01) | LOC: NCHCN 15:19 | PROVIDERS: PCP Nurse Practitioner Family; Visit Provider Nurse Practitioner Family | DX: R31.0 Gross hematuria (principal) | CPT/HCPCS: 87077; 87086; 87186 ==

== ENCOUNTER 2023-06-06 16:23 | Outpatient (REF) | payer BC, OTHER, SELFPAY ==
[2023-06-06 18:21] LABS: Bilirubin Negative (Negative); Blood Large (Negative); Clarity Sl Cloudy (Clear); Glucose Negative (Negative); Ketones Negative (Negative); Leukocyte Esterase Moderate (Negative); Nitrite Negative (Negative); Specific Gravity 1.015 (1.005-1.025); Urobilinogen 0.2 mg/dL (Up to 0.2)
[2023-06-06 18:33] LABS: Bacteria Moderate HPF (Negative); Crystals Negative HPF (Negative); Epithelial Cells Few HPF (Negative); Mucus Negative (Negative); RBC 20-50 HPF (0-2); WBC 20-50 HPF (0-5)
[2023-06-06 18:34] LABS: C & S Indicated? Yes; Casts Negative LPF (Negative)
== END 2023-06-06 16:24 | disposition home or self-care (01) ==
LOC: NCHCN 16:23
PROVIDERS: PCP Nurse Practitioner Family; Visit Provider Nurse Practitioner Family
DX: Z87.440 Personal history of urinary (tract) infections (principal)
CPT/HCPCS: 81003; 81015; 87086

== ENCOUNTER 2023-07-24 02:08 | Outpatient (CLI) | payer BC, OTHER, SELFPAY ==
[2023-07-24 15:17] LABS: CREATININE 1.2 mg/dL (0.55-1.02); Estimated GFR 51.82 (mL/min/1.73m2)
== END 2023-07-24 02:09 | disposition home or self-care (01) ==
LOC: LBO 02:08
PROVIDERS: PCP Nurse Practitioner Family; Visit Provider Obstetrics & Gynecology Gynecology
DX: R31.29 Other microscopic hematuria (principal)
CPT/HCPCS: 36415; 82565

== ENCOUNTER 2023-10-03 19:38 | Outpatient (REF) | payer BC, OTHER, SELFPAY ==
[2023-10-03 21:00] LABS: Abs Immature Grans 0.02 10^3/uL (0.0-0.06); Absolute Basophil Count 0.07 10^3/uL (0.0-0.2); Absolute Lymphocyte Count 1.97 10^3/uL (1.2-3.4); Absolute Monocyte Count 0.63 10^3/uL (0.1-0.8); Absolute Neutrophil Count 4.07 10^3/uL (1.2-6.7); Eosinophils % 4.2; HCT 40.3 % (36.0-46.0); HGB 12.7 g/dL (11.2-15.7); Immature Grans % 0.3; Lymphocytes % 27.9; MCH 27.1 pg (27.0-33.0); MCHC 31.5 % (32.0-36.0); MCV 86 fL (80-95); MPV 10.4 fL (8.0-11.0); Monocytes % 8.9; Neutrophils % 57.7; Platelet Count 296 10^3/uL (130-400); RBC 4.68 10^6/uL (3.93-5.22); RDW 15.3 % (11.7-14.6); RDW-SD 48.1 fL; WBC 7.06 10^3/uL (4.4-10.8)
[2023-10-03 21:19] LABS: ALT 29 U/L (14-59); AST 20 U/L (15-37); Albumin 3.6 g/dL (3.4-5.0); Alkaline Phosphatase 149 U/L (46-116); Anion Gap 8.8 mmol/L (3-11); BUN 15 mg/dL (7-18); Bilirubin, Total 0.3 mg/dL (0.2-1.0); CO2 27.2 mmol/L (21.0-32.0); Calcium 9.8 mg/dL (8.5-10.1); Chloride 104 mmol/L (98-107); Estimated GFR 64.49 (mL/min/1.73m2); Glucose 104 mg/dL (74-106); Potassium 3.7 mmol/L (3.5-5.1); Sodium 140 mmol/L (136-145); TSH (W/Ref FT4) 0.08 uIU/mL (0.36-3.74); Total Protein 8.4 g/dL (6.4-8.2)
[2023-10-03 21:38] LABS: FREE T4 1.31 ng/dL (0.76-1.46)
== END 2023-10-03 19:39 | disposition home or self-care (01) ==
LOC: NCHCN 19:38
PROVIDERS: PCP Nurse Practitioner Family; Visit Provider Nurse Practitioner Family
DX: Z01.818 Encounter for other preprocedural examination (principal)
CPT/HCPCS: 80053; 84439; 84443; 85025

== ENCOUNTER → 2023-11-07 01:24 | Outpatient (CLI) | payer BC, OTHER, SELFPAY ==
[2023-11-07 10:58] LABS: Estimated GFR 64.49 (mL/min/1.73m2)
[2023-11-07] MEDS: Omnipaque 350 MG/ML 500 ML BTL-Imaging package 100 ML IJ (11:48)
--- NOTE | 2023-11-07 12:00 | DI.CT_ITS ---
Exam(s) CT ABDOMEN PELVIS WO/W EXAM: CT ABDOMEN PELVIS WO/W CLINICAL HISTORY: RETROPERITONEAL LYMPHADENOPATHY,R59.0 TECHNIQUE: Imaging Protocol: Axial computed tomography images with coronal and sagittal reformatted images were created and reviewed CONTRAST MATERIAL: Intravenous: Omnipaque 350 Contrast volume:100 mL Oral: No COMPARISON: No exams were available for comparison FINDINGS: ABDOMEN: Lung Bases: Normal where visualized. Liver: Normal density. No measurable mass. Portal, Superior Mesenteric, and Splenic Veins: Unremarkable. Gallbladder and Biliary Tract: No radiodense calculus or dilation. Pancreas: Normal density, no abnormal calcifications or inflammatory process. Spleen: Normal. Adrenals: No masses seen. Kidneys: There is stranding around the proximal left ureter and left renal pelvis. There is also wal l thickening seen in the left renal pelvis and proximal ureter. There is also mild stranding around the left kidney. There is bilateral nephrolithiasis. No evidence of obstructive uropathy. Abdominal Aorta: Abdominal portion non-dilated. Bowel: There is diverticulosis of the colon but no evidence of acute diverticulitis. There is no bow el wall thickening or obstruction present. Appendix is unremarkable. Peritoneal Cavity: No ascites, collection or mesenteric inflammatory response. No free air. Lymph Nodes: Within normal limits. Bones: Within normal limits for the patient's age. Soft Tissues: Unremarkable. PELVIS: Bladder: Symmetric distention, no gross wall thickening. Reproductive Organs: Unremarkable as visualized. Lymph Nodes: Within normal limits. Bones: Within normal limits for the patient's age. IMPRESSION: 1. Mild wall thickening and soft tissue stranding of the left renal pelvis and proximal left ureter. Differential considerations include neoplasm, infection or recently passed stone. 2. Bilateral nephrolithiasis. RADIATION DOSE DELIVERED: Total DLP Total DLP DATA REPOSITORY: All CT scans at this facility are submitted to the National Radiology Data Registry (NRDR) Dose Index Registry (DIR) with the [employer] (ACR). RADIATION OPTIMIZATION: All CT scans at this facility use at least one of these dose optimization te chniques: automated exposure control; mA and/or kV adjustment per patient size (includes targeted exa ms where dose is matched to clinical indication); or iterative reconstruction.
== END ==
PROVIDERS: PCP Nurse Practitioner Family; Visit Provider Urology
DX: N20.0 Calculus of kidney (principal)
CPT/HCPCS: 74178; 82565

== ENCOUNTER 2023-11-12 02:34 | Outpatient (CLI) | payer BC, OTHER, SELFPAY ==
[2023-11-12 11:55] LABS: Bilirubin Negative (Negative); Blood Small (Negative); Clarity Clear (Clear); Glucose Negative (Negative); Ketones Negative (Negative); Leukocyte Esterase Moderate (Negative); Nitrite Negative (Negative); Specific Gravity 1.015 (1.005-1.025); Urobilinogen 0.2 mg/dL (Up to 0.2)
[2023-11-12 12:03] LABS: Bacteria Few HPF (Negative); C & S Indicated? C&S Done As Ordered; Casts Negative LPF (Negative); Crystals Negative HPF (Negative); Epithelial Cells Rare HPF (Negative); Mucus Negative (Negative); Other Cells Rare Renal (Negative)
== END 2023-11-12 02:35 | disposition home or self-care (01) ==
LOC: LBO 02:34
PROVIDERS: PCP Nurse Practitioner Family; Visit Provider Urology
DX: N20.0 Calculus of kidney (principal); R59.0 Localized enlarged lymph nodes; R82.998 Other abnormal findings in urine
CPT/HCPCS: 87077; 81003; 81015; 87086; 87186

== ENCOUNTER 2023-11-26 14:44 | Outpatient (REF) | payer BC, OTHER, SELFPAY ==
[2023-11-26 15:40] LABS: Bilirubin Negative (Negative); Blood Negative (Negative); Clarity Clear (Clear); Glucose Negative (Negative); Ketones Negative (Negative); Leukocyte Esterase Negative (Negative); Nitrite Negative (Negative); Specific Gravity 1.015 (1.005-1.025); Urobilinogen 0.2 mg/dL (Up to 0.2)
== END 2023-11-26 14:45 | disposition home or self-care (01) ==
LOC: NCHCN 14:44
PROVIDERS: PCP Nurse Practitioner Family; Visit Provider Nurse Practitioner Family
DX: R39.89 Other symptoms and signs involving the genitourinary system (principal); Z87.440 Personal history of urinary (tract) infections
CPT/HCPCS: 81003

== ENCOUNTER 2024-03-18 11:14 | Outpatient (REF) | payer BC, OTHER, SELFPAY | END 2024-03-18 11:15 | disposition home or self-care (01) | LOC: LBN 11:14 | PROVIDERS: PCP Nurse Practitioner Family; Visit Provider Nurse Practitioner Gerontology | DX: N39.0 Urinary tract infection, site not specified (principal); R82.89 Other abnormal findings on cytological and histological examination of urine | CPT/HCPCS: 87077; 87086; 87186 ==

== ENCOUNTER 2024-03-24 12:07 | Outpatient (REF) | payer BC, OTHER, SELFPAY ==
[2024-03-25 12:53] LABS: CREATININE 1.1 mg/dL (0.55-1.02); Estimated GFR 57.52 (mL/min/1.73m2)
== END 2024-03-24 12:08 | disposition home or self-care (01) ==
LOC: LBN 12:07
PROVIDERS: PCP Nurse Practitioner Family; Visit Provider Urology
DX: R59.1 Generalized enlarged lymph nodes (principal); B96.20 Unspecified Escherichia coli [E. coli] as the cause of diseases classified elsewhere
CPT/HCPCS: 82565

== ENCOUNTER 2024-09-16 09:33 | Outpatient (REF) | payer BC, OTHER, SELFPAY | END 2024-09-16 09:34 | disposition home or self-care (01) | LOC: LBN 09:33 | PROVIDERS: PCP Nurse Practitioner Family; Visit Provider Nurse Practitioner Gerontology | DX: N39.0 Urinary tract infection, site not specified (principal); R32 Unspecified urinary incontinence; R31.9 Hematuria, unspecified | CPT/HCPCS: 87086 ==

== ENCOUNTER 2024-09-18 19:09 | Outpatient (REF) | payer BC, OTHER, SELFPAY ==
[2024-09-18 16:26] LABS: WBC 20-50 HPF (0-5)
[2024-09-18 16:28] LABS: Bacteria Few HPF (Negative); C & S Indicated? C&S Done As Ordered; Casts Negative LPF (Negative); Crystals Negative HPF (Negative); Epithelial Cells Rare HPF (Negative); Mucus Negative (Negative); Other Cells Rare Renal (Negative); RBC 0-2 HPF (0-2)
== END 2024-09-18 19:10 | disposition home or self-care (01) ==
LOC: LBN 19:09
PROVIDERS: PCP Nurse Practitioner Family; Visit Provider Physician Assistant Medical
DX: R30.0 Dysuria (principal); B96.29 Other Escherichia coli [E. coli] as the cause of diseases classified elsewhere
CPT/HCPCS: 87077; 81015; 87086; 87186

== ENCOUNTER 2024-12-31 12:31 | Outpatient (REF) | payer BC, OTHER, SELFPAY | END 2024-12-31 12:32 | disposition home or self-care (01) | LOC: NCHCN 12:31 | PROVIDERS: PCP Nurse Practitioner Family; Visit Provider Physician Assistant | DX: N39.0 Urinary tract infection, site not specified (principal) | CPT/HCPCS: 87077; 87086; 87186 ==

== ENCOUNTER 2025-05-03 02:01 | Outpatient (CLI) | payer BC, OTHER, SELFPAY ==
--- NOTE | 2025-05-03 | DI.MAMMO_ITS ---
Exam(s) MAMMO SCREENING EXAM: MAMMO SCREENING CLINICAL HISTORY: Screening, Z12.31. TECHNIQUE: Bilateral full field digital CC and MLO mammographic images were obtained with 3D tomosyn thesis and utilizing computer aided detection (CAD). COMPARISON: Prior mammograms were reviewed. FINDINGS: There has been no significant change in the appearance and distribution of the fibroglandular tissue. There are no new spiculated masses nor malignant appearing microcalcification groups. There is no significant architectural distortion nor skin thickening-retraction. IMPRESSION: No radiographic evidence of malignancy. BI-RADS Category 1 - Negative Breast Density - Category C - The breast are heterogeneously dense, which may obscure small masses. Breast density Category C or D implies that the patient has dense breast tissue. Dense breast tissue can make it harder to find cancer on a mammogram. Dense breast tissue is also associated with an incr eased risk of breast cancer. This information about the result of the mammogram report was provided to the patient to raise their awareness. Use this report when you speak with the patient about their risks for breast cancer, which includes their family history. At that time, you may recommend additional screening tests (Ultrasoun d or MRI) as these tests may add significant information. A negative radiographic report should not delay biopsy if a dominant or clinically suspicious mass is present. Up to ten percent of cancers are not identified on mammography. A negative report may reinforce clinical impression. Adenosis and dense breasts may obscure an underlying neoplasm. False positive reports average 6 to 10%. Patient will receive a letter notifying them of these results.
== END 2025-05-03 02:21 ==
LOC: DI 02:01
PROVIDERS: PCP Nurse Practitioner Family; Visit Provider Nurse Practitioner Family
DX: Z12.31 Encounter for screening mammogram for malignant neoplasm of breast (principal)
CPT/HCPCS: 77063; 77067

== ENCOUNTER 2025-05-11 14:58 | Outpatient (REF) | payer BC, OTHER, SELFPAY ==
[2025-05-11 17:47] LABS: Hemoglobin A1C 6.1 % (<5.7)
[2025-05-11 17:57] LABS: ALT 38 U/L (14-59); AST 21 U/L (15-37); Albumin 3.9 g/dL (3.4-5.0); Alkaline Phosphatase 130 U/L (46-116); Anion Gap 10.1 mmol/L (3-11); BUN 17 mg/dL (7-18); Bilirubin, Total 0.4 mg/dL (0.2-1.0); CO2 26.9 mmol/L (21.0-32.0); CREATININE 1.2 mg/dL (0.55-1.02); Calcium 9.4 mg/dL (8.5-10.1); Chloride 104 mmol/L (98-107); Glucose 115 mg/dL (74-106); Magnesium 1.9 mg/dL (1.8-2.4); Potassium 4.3 mmol/L (3.5-5.1); Sodium 141 mmol/L (136-145); TSH (W/Ref FT4) 1.23 uIU/mL (0.36-3.74); Total Protein 7.9 g/dL (6.4-8.2)
[2025-05-11 18:23] LABS: COMMENT (LAB VIEW ONLY) 53.97 mg/dL; Microalb ug/mg Crea 41.3 ug/mg Cr
== END 2025-05-11 14:59 | disposition home or self-care (01) ==
LOC: NCHCN 14:58
PROVIDERS: PCP Nurse Practitioner Family; Visit Provider Nurse Practitioner Family
DX: R60.0 Localized edema (principal); Z87.448 Personal history of other diseases of urinary system; E03.9 Hypothyroidism, unspecified; E11.9 Type 2 diabetes mellitus without complications
CPT/HCPCS: 80053; 82043; 82570; 83036; 83735; 84443

== ENCOUNTER 2025-08-11 02:12 | Outpatient (CLI) | payer BC, OTHER, SELFPAY ==
--- NOTE | 2025-08-11 11:30 | DI.RAD_ITS ---
Exam(s) RF BARIUM SWALLOW UGI EXAM: RF BARIUM SWALLOW UGI CLINICAL HISTORY: food impactions of esophagus, dysphagia,ESOPHAGEAL OBSTRUCTION DUE TO FOOD TECHNIQUE: 2D and real-time digital imaging was performed. CONTRAST MATERIAL: Oral barium Oral water soluble contrast was administered. COMPARISON: No exams were available for comparison FINDINGS: ESOPHAGRAM: There is no evidence of aspiration during the swallow. There is no obvious hypertense upper esophageal sphincter and no evidence of Zenker's diverticulum. The diameter of the esophagus is normal. No evidence obvious fixed lesions. No evidence of achalasia. No tertiary waves. However, towards the end of the examination a small sliding-type hiatal hernia was noted. GE junction otherwise appears unremarkable. No associated reflux demonstrated. STOMACH: No obvious lesions. No ulcer craters. DUODENUM: Normal mucosal pattern no evidence of ulcer craters nor strictures. No diverticuli. IMPRESSION: Small inconsistent sliding-type hiatal hernia noted. No other obvious findings in the esophagus. No significant findings in the stomach and duodenum. RADIATION DOSE DELIVERED: farrah Weeks= 40.4 mGy
[2025-08-11] MEDS: Simethicone/Sod Bicarb/Cit Ac, 4 gram PACKET 1 PACKET PO (11:33)
[2025-08-11] MEDS: Barium Sulfate 60% W/V 355 ML BTL PO (11:34)
[2025-08-11] MEDS: Barium Sulfate 98% W/W 140 ML BTL PO (11:35)
== END 2025-08-11 02:32 ==
LOC: DI 02:12
PROVIDERS: PCP Nurse Practitioner Family; Visit Provider Surgery
DX: T18.128A Food in esophagus causing other injury, initial encounter (principal); W44.F3XA Food entering into or through a natural orifice, initial encounter
CPT/HCPCS: 74221; 74246; J3490

== ENCOUNTER 2025-08-26 08:15 | Day surgery (SDC) | payer BC, OTHER, SELFPAY ==
[2025-08-26 08:49] VITALS: BP 123/83; PULSE 95; RESP 18; TEMP 35.9; O2SAT 98
--- NOTE | 2025-08-26 08:54 | ANES.PREOP_ITS ---
General Info Date of Service Date Performed: 08/26/25 Height: 5 ft 4 in Weight: 107.955 kg Body Mass Index (BMI): 40.8 Surgical Procedure: Operation Date: 08/26/25 09:35 Proposed Procedure Side Surgeon p Colonoscopy/Gastroscopy Sofía Crenshaw MD Meds Allergies and Home Medications Allergies Allergy/AdvReac Type Severity Reaction Status Date / Time No Known Allergies Allergy Unverified 08/26/25 08:44 Home Medication ?Medication ?Instructions ?Recorded aripiprazole 10 mg tablet (Abilify) 10 mg PO DAILY duloxetine 60 mg capsule,delayed 60 mg PO DAILY release (Cymbalta) aspirin 81 mg tablet,delayed 81 mg PO DAILY 10/24/22 release latanoprost 0.005 % eye drops 1 drp ophthalmic (eye) Q PM 10/24/22 lisinopril 2.5 mg tablet 2.5 mg PO DAILY 10/24/22 atorvastatin 80 mg tablet 40 mg PO QHS 11/30/22 timolol maleate 0.5 % eye drops 1 drp ophthalmic (eye) DAILY 06/07/23 blood sugar diagnostic (OneTouch 07/30/24 Ultra Test strips) dorzolamide 22.3 mg-timolol 6.8 1 drp ophthalmic (eye) BID 07/30/24 mg/mL eye drops lancets 30 gauge 07/30/24 lancing device with lancets kit 07/30/24 sodium fluoride 1.1 %-potassium 1 applic dental DIR ECTED 07/30/24 nitrate 5 % dental paste turmeric 450 mg-turmeric root cap PO 07/30/24 extract 50 mg capsule cranberry 500 mg capsule 500 mg PO DAILY 03/17/25 estradiol 0.01% (0.1 mg/gram) 1 g vaginal DIRECTED 03/17/25 vaginal cream (Estrace) levothyroxine 25 mcg tablet 100 mcg PO DAILY 03/17/25 (Synthroid) uqora PO 03/17/25 tirzepatide 5 mg/0.5 mL 5 mg subcut QWEEK 06/30/25 subcutaneous pen injector (Mounjaro) bisacodyl 5 mg tablet,delayed 5 mg PO ONCE colonscopy bowel prep 08/05/25 release (Dulcolax (bisacodyl)) #4 tabs polyethylene glycol 3350 17 238 g PO ONCE colonoscopy prep 08/05/25 gram/dose oral powder #238 grams pantoprazole 40 mg tablet,delayed 40 mg PO DAILY #30 t abs 08/23/25 release Current Visit Medications: Current Medications Generic Name Dose Route Start Last Admin Trade Name Freq PRN Reason Stop Dose Admin Ringer's Solution 1,000 mls @ 80 mls/hr 08/26/25 06:00 IV 08/26/25 23:59 INFUSION [facility] IV Miscellaneous Supplies 1 each 08/26/25 06:00 Iv Access IV 08/26/25 23:59 DIRECTED RAY Sodium Biphosphate/Sodium Phosphate 133 - 266 ml 08/26/25 06:00 Na Phosphate Enema-Adult 133 Ml Btl OH 08/26/25 23:59 DIRECTED PRN Sodium Chloride 0 ml 08/26/25 06:00 Normal Saline Flush 10 Ml Syr IV 08/26/25 23:59 PRN PRN Sodium Chloride 0 ml 08/26/25 06:00 Normal Saline 10 Ml Vial IJ 08/26/25 23:59 DIRECTED PRN Sterile Water 0 ml 08/26/25 06:00 Water,Injection,Sterile 10 Ml Vial IJ 08/26/25 23:59 DIRECTED PRN PFSH Active Problems Active Problems: Problem Status Onset Code Esophageal obstruction due to food impaction Acute T18.128A, W44.F3XA Migraine headache with aura Acute G43.109 Pes anserinus bursitis of left knee Acute M70.52 Chondromalacia, left knee Acute M94.262 Complex tear of medial meniscus of left knee Acute S83.232A Medical History Medical History Dysplastic nevus of skin Dysphagia Preoperative evaluation of a medical condition to rule out surgical contraind ications (TAR required) Migraine Renal insufficiency Urinary tract infectious disease Non-organic sleep disorder Low back strain Acute cystitis Cough Encounter for screening for malignant neoplasm of cervix Prediabetes Acute lower urinary tract infection Abnormal glucose Headache Disorder of nail Disorder of left eye region Increased frequency of urination Disorder of teeth and supporting structures Recurrent depressive disorder, current episode moderate History of urinary tract infection Screening for viral disease Pain in lower limb Fran hematuria Repeat prescription issue Proteinuria Fatigue Retinal vascular occlusion Visual disturbance Disorder of sleep-wake cycle Counseling and coordination of care Pain of left lower leg Screening for malignant neoplasm of breast Type 2 diabetes mellitus without complication Pain in joint of left knee Eczema Acute pharyngitis Localized skin eruption Obesity with body mass index 30 or greater Glaucoma suspect of both eyes Adult general medical exam Pain in joint of right shoulder Urinary incontinence Diabetes mellitus Albuminuria Hematuria Recurrent UTI Hyperlipidemia Hypertension Borderline personality disorder Chronic right shoulder pain Reduced libido Open angle with borderline findings, low risk, bilateral BMI 39.0-39.9,adult Knee pain, left Type 2 diabetes mellitus Sleep pattern disturbance Incontinence in female Ocular ischemic syndrome Obesity On paleo diet and has lost 2 dress sizes Vitamin D deficiency Periodontitis Female infertility Hypothyroid Chronic mycotic otitis externa MDD (major depressive disorder) Surgical History Surgical History S/P cystoscopy S/P urethral surgery insertion of single incision mid-urethral mini-sling (06-04-2024) Kimberly Renteria. S/P left knee arthroscopy S/P excision of ganglion cyst S/P tubal ligation Tobacco Smoking/Tobacco Use Status: Former Tobacco Use Alcohol Alcohol Intake: current Alcohol intake frequency: 0-2 drinks per day Substance Use Substance use: Never Substance use type: does not use Vital Signs and Lab Results Point of Care Results Point of Care Results: Finger Stick Blood Glucose 107 08/26/25 08:34 Anesthesia Assessment and Plan Anesthesia History Personal History: No History of Anesthesia Complications Family History: No Family History of Anesthesia Complications Exercise Tolerance Exercise Tolerance: Metabolic Equivalents>4 Cardiac & Pulmonary Exam Cardiac Exam: Normal S1/S2 Heart Sounds Pulmonary Exam: Clear Bilateral Breath Sounds Implantable Cardiac Device Does patient have a Pacemaker or an ICD?: No Airway Exam Known Difficult Airway: No Mallampati Class: 3 Mouth Opening: Normal (> 3cm) Thyromental Distance: Greater than 3 cm Neck Range of Motion: Full ROM Neck Circumference: Normal Teeth Condition: Normal Dentition ASA Classification ASA Score: ASA 3 Emergency Case?: No NPO Status NPO Status: NPO Clears >2 hours, Solids >8 hours Anesthesia Plan Resuscitation Status: Full Code Anesthesia Technique: General Anesthesia Airway Planned: Natural Airway Monitors Used: Standard Monitors Preoperative Comments:: 60 yo for EGD/colo. Sig PMHx: HTN (lisinopril), GERD (pantoprazole. sounds well controlled. Sleeps with HOB flat), migraine, DM2 (Monjaro - last dose 07/28), glaucoma (boardline), retinal artery occlusion, hypothyroid (on replacement), depression. Former smoker, occ EtOH. Previous Anes: - Knee scope, LMA 4, no issues.
[2025-08-26 09:00] VITALS: BMI 40.8
[2025-08-26] MEDS: Lactated Ringers 1,000 ML 80 ML IV (09:00)
--- NOTE | 2025-08-26 09:20 | W.PM.DSUDISC ---
Date of service: 08/26/25 Discharge Plan Disposition Patient Disposition: Home Condition: Stable Discharge Details Attending Provider: Sofía Crenshaw Primary Care Provider: RAVEN ALVARES Recommendations for Follow Up Recommended tests to be ordered by follow up provider: Next colonoscopy due in 3 years Home Meds and New Rx's Prescriptions: Discontinued bisacodyl [Dulcolax (bisacodyl)] 5 mg tablet,delayed release (DR/EC) 5 mg PO ONCE Qty: 4 0RF Rx Instructions: take per colonoscopy instructions polyethylene glycol 3350 17 gram/dose powder 238 g PO ONCE Qty: 238 0RF Rx Instructions: take per colonoscopy instructions No Action atorvastatin 80 mg tablet 40 mg PO QHS uqora PO Patient Comments: 03/17/25- pt takes uqora system for urinary health- blend of vitamins and minerals, green tea and black pepper. cranberry 500 mg capsule 500 mg PO DAILY Rx Instructions: administer with meals estradiol [Estrace] 0.01 % (0.1 mg/gram) cream 1 g vaginal DIRECTED Patient Comments: 2x/wk Rx Instructions: for 14 days Mounjaro 5 mg/0.5 mL pen injector 5 mg subcut QWEEK aspirin 81 mg tablet,delayed release (DR/EC) 81 mg PO DAILY Patient Comments: on hold for colo lisinopril 2.5 mg tablet 2.5 mg PO DAILY latanoprost 0.005 % drops 1 drp ophthalmic (eye) QPM timolol maleate 0.5 % drops 1 drp ophthalmic (eye) DAILY Patient Comments: uses combined drop (DME) OneTouch Ultra Test Strip See Rx Instructions .Route Rx Instructions: As directed dorzolamide-timolol 22.3-6.8 mg/mL drops 1 drp ophthalmic (eye) BID sodium fluoride-pot nitrate 1.1-5 % paste 1 applic dental DIRECTED Rx Instructions: brush teeth using soft brush for at least 1 min ; rinse mouth thoroughly and spit out (DME) lancing device with lancets Kit See Rx Instructions .Route Rx Instructions: As directed (DME) lancets 30 gauge misc See Rx Instructions .Route Rx Instructions: As directed turmeric-turmeric root extract 450-50 mg capsule PO levothyroxine [Synthroid] 25 mcg tablet 100 mcg PO DAILY pantoprazole 40 mg tablet,delayed release (DR/EC) 40 mg PO DAILY Qty: 30 5RF aripiprazole [Abilify] 10 MG tablet 10 mg PO DAILY duloxetine [Cymbalta] 60 MG capsule,delayed release(DR/EC) 60 mg PO DAILY Discharge Instructions Additional Instructions: Hiatal hernia with GERD and esophagitis Moderate esophagitis or esophagus inflammation with narrowing due to reflux through hiatal hernia Expect the swallowing to improve with control and management of reflux through the hiatal hernia. Dilation performed today to help open it up and expedite response. Continue the recently prescribed pantoprazole. Office follow up in 2-4 weeks as planned. Colonoscopy shows 3 polyps that I saw and removed. You will be due again for colonoscopy in 3 years. Stand Alone Forms: Anesthesia Discharge Inst., Prabhakar Guerrero ([facility]) Referrals: Sofía Crenshaw MD [ [facility] STAFF PHYSICIAN, Surgery] - 09/15/25 8:30 am Activity:: Activity as Tolerated Diet:: As Tolerated Discharge Orders Discharge Orders: Discharge Order (Routine); Ordered 08/26/25 Ordered By: Sofía Crenshaw DS: Diagnosis Discharge Diagnosis (1) Esophageal obstruction due to food impaction: Status: Acute (2) Hiatal hernia with GERD and esophagitis: Status: Acute (3) Rectal polyp: Status: Acute (4) Polyp of ascending colon: Status: Acute
--- NOTE | 2025-08-26 09:21 | W.PM.ENDDOP ---
Date of service: 08/26/25 Time of Service: 09:50 Endoscopy Report DATE OF PROCEDURE: 08/26/25 PRE-OP DIAGNOSIS: dysphagia, food impactions of esophagus POST-OP DIAGNOSIS: same (hiatal hernia with esophagitis) PROCEDURE: EGD with biopsy, esophageal dilation SURGEON: Sofía Crenshaw ANESTHESIA TYPE: General:No Airway ESTIMATED BLOOD LOSS: 2 PATHOLOGY: other (1. antrum biopsy. 2. distal esophagus) COMPLICATIONS: None DISPOSITION: same day INDICATIONS: Evaluation of upper digestive system for epigastric pain source/cause PROCEDURE DESCRIPTION: Lubricated endoscope was passed through a bite block into the second portion of the duodenum. The endoscope was withdrawn and the duodenum stomach and esophageal mucosa examined. The duodenum appeared normal. There is no inflammation or ulceration or erosion. The antrum appears normal. The fundus appears normal. The cardia appears normal. The scope was retroflexed and a small hiatal hernia is seen. The distal esophagus shows evidence of chronic inflammation without formal stricture, ulceration, varices or candidiasis. Narrowing noted. The Z-line is regular and there is no evidence of Ron's esophagus. Remainder of the esophagus appears normal Cold forceps biopsies obtained from the antrum and the distal esophagus for microscopic evaluation for H. pylori, esophagitis and metaplasia. Dilation of the narrowed distal esophagus performed with balloon dilator. Dilated from 15 to 16.5 to 18mm, with each dilation held for 60 seconds. Visible improvement in narrowing noted after dilation. Mild cracking of mucosa without injury. The upper digestive system was desufflated and the endoscope withdrawn. No complications. Assessment and plan: Hiatal hernia with GERD and esophagitis Moderate esophagitis with narrowing due to reflux through hiatal hernia Expect the dysphagia to improve with control and management of reflux through the hiatal hernia. Dilation today will expedite response. Continue the recently prescribed pantoprazole. She reports symptom improvement already. Office follow up in 2-4 weeks as planned.
--- NOTE | 2025-08-26 09:25 | W.COLOREPORT ---
Date of service: 08/26/25 Time of Service: 10:11 Colonoscopy Report Date of procedure: 08/26/25 Pre-op diagnosis general: Screening for colorectal cancer Post-op diagnosis procedure note: same Procedure: Colonoscopy Surgeon: Sofía Crenshaw Anesthesia Type: General:No Airway Estimated blood loss (mL): 0 Pathology: none sent Complications: None Indications: screening for colorectal cancer Prep: Miralax/Dulcolax Procedure Description: Informed consent was obtained and the patient was taken to the procedure area. The patient was placed in left lateral decubitus position on the procedure table. Timeout was performed. Anesthesia was induced. A lubricated colonoscope was inserted through the anus and passed to the cecum. The cecum was identified by the ileocecal valve and the appendiceal orifice. The scope was then slowly withdrawn and the colonic and rectal mucosa examined. TI intubated and examined. It appears normal. Ascending colon with pedunculated polyp 11mm in size, excised with cold snare and cold forceps. Removal/retrieval complete. Polyp trap utilized. Proximal rectum polyp 4mm sessile excised with cold forceps. Distal rectum polyp at the anal verge, pedunculated, removed with cold snare and retrieved manually through the anus. Uncomplicated internal hemorrhoids present. Assessment and plan: Screening for colorectal cancer ascending colon polyp rectum polyp distal rectum polyp two polyps 10mm in size, one <10mm in size. Next colonoscopy will be due in 3 years.
--- NOTE | 2025-08-26 09:33 | BOWEL_PTH ---
PATIENT: Estefania Wang LOC: [facility] U#:[id number] AGE/SX: 60/F ROOM: RE08/26/[address]: Sofía Crenshaw MD : 1965 BED: DIS: 08/26/2025 SPEC #: [id number] RECD: 08/26/25 12:43 STATUS: HERSON REMorgan #: [id number] TRUDY: 08/26/25 09:[address]: Sofía Crenshaw DEPT: Surgical Specimen RECD BY: Zayda Londono ENTERED: 08/26/25 12:44 SP TYPE: Bowel OTHR DR: RAVEN ALVARES, [employer] Tissues: 1 - STOMACH BIOPSY 2 - ESOPHAGUS BIOPSY 3 - BIOPSY BOWEL 4 - BIOPSY BOWEL 5 - BIOPSY BOWEL Procedures: GROSS AND MICRO LEVEL 4 Comments: [id number]
[2025-08-26 10:11] VITALS: BP 119/76; PULSE 91; RESP 18; TEMP 36.1; O2SAT 94
--- NOTE | 2025-08-26 10:22 | W.ANESPOSTOP ---
Postoperative Evaluation Date, Time and Location Date Performed: 08/26/25 Time Performed: 10:23 Patient Location: Day Surgery Unit Vital Signs Most Recent Imported Vital Signs: Most Recent Vital Signs Temp Pulse Resp BP Pulse Ox 36.1 C L 91 H 18 119/76 94 08/26/25 10:11 08/26/25 10:11 08/26/25 10:11 08/26/25 10:11 08/26/25 10:11 Pain Score Most Recent Pain Score: Most Recent Pain Score Pain Level 0 08/26/25 10:11 Assessment Mental Status: Awake (Alert & Oriented to Patient Baseline) Airway and Respiratory Function: Patent airway with normal (patient baseline) respiratory exam Cardiovascular Function: Hemodynamically Stable Hydration Status: Adequately Hydrated Nausea & Vomiting: No Nausea or Vomiting Pain: Pt. Denies Any Pain Peripheral Nerve Block: Patient did not receive a nerve block
[2025-08-26 10:38] VITALS: BP 132/90; PULSE 78; RESP 18; TEMP 36; O2SAT 97
== END 2025-08-26 10:59 | disposition home or self-care (01) ==
LOC: SUR 08:16
PROVIDERS: PCP Nurse Practitioner Family; Visit Provider Surgery
PROC: (CPT 43245; principal; 2025-08-26 09:30)
DX: Z12.11 Encounter for screening for malignant neoplasm of colon (principal); T18.128A Food in esophagus causing other injury, initial encounter; W44.F3XA Food entering into or through a natural orifice, initial encounter; K44.9 Diaphragmatic hernia without obstruction or gangrene; K21.00 Gastro-esophageal reflux disease with esophagitis, without bleeding; D37.4 Neoplasm of uncertain behavior of colon; D12.8 Benign neoplasm of rectum; I10 Essential (primary) hypertension; K21.9 Gastro-esophageal reflux disease without esophagitis; E11.9 Type 2 diabetes mellitus without complications
CPT/HCPCS: 43245; 45385; 45380; 88305; J2003; J2405; J2704

== ENCOUNTER 2025-09-15 09:54 | Outpatient (REF) | payer BC, OTHER, SELFPAY | END 2025-09-15 09:55 | disposition home or self-care (01) | LOC: LBN 09:54 | PROVIDERS: PCP Nurse Practitioner Family; Visit Provider Nurse Practitioner Gerontology | DX: N20.0 Calculus of kidney (principal) | CPT/HCPCS: 87077; 87086; 87186 ==

== ENCOUNTER → 2025-11-08 13:33 | Outpatient (CLI) | payer BC, OTHER, SELFPAY ==
--- NOTE | 2025-11-08 14:02 | DI.RAD_ITS ---
Exam(s) XR KNEE RT 3V AP,LAT,RAHUL EXAM: XR KNEE RT 3V AP,LAT,RAHUL CLINICAL HISTORY: ACUTE PAIN RT KNEE, M25.561. TECHNIQUE: 2D digital imaging was performed of the right knee. Three views obtained. AP, lateral and PA tunnel views were obtained. COMPARISON: CR XR KNEE LT 3V AP,LAT,RAHUL from 11/30/2022 FINDINGS: BONES: No acute fracture is present. No bony destructive lesion is seen. There is an enthesophyte at the anterior patella. There is a well corticated osseous density at the anterior aspect of the joint on the lateral view which appears old. JOINTS: The knee is normally aligned. There is mild narrowing of the medial femoral tibial joint. SOFT TISSUE: Normal. IMPRESSION: There is no acute abnormality identified at this time. Should symptoms persist, an MRI may be considered for further evaluation. DATA REPOSITORY: RADIATION DOSE DELIVERED:
== END ==
LOC: DI 13:34
PROVIDERS: PCP Nurse Practitioner Family; Visit Provider Nurse Practitioner Family
DX: M25.561 Pain in right knee (principal)
CPT/HCPCS: 73562